=== PATIENT | male | born 1950 | race Caucasian/White ===

== ENCOUNTER 2025-06-09 14:27 | Emergency (ER) | payer OTHER, SELFPAY ==
[2025-06-09] VITALS (7 sets, daily range): BP systolic 139–160; BP diastolic 66–83; BMI 21.5
[2025-06-09 15:03] LABS: Hematocrit 43.6 % (39.0-52.0); Hemoglobin 14.9 g/dL (13.0-18.0); Mean Corp Hgb Conc. 34.2 g/dL (33.0-37.0); Mean Corpuscular Volume 93.8 fL (80.0-94.0); Nucleated Red Blood Cells % 0 % (-); Platelet Count 149 10^3/uL (130-400); Red Cell Dist. Width 12.3 % (11.5-14.5)
[2025-06-09 15:20] LABS: ALT (SGPT) 16 U/L (0-50); AST (SGOT) 21 U/L (17-59); Albumin 4.8 g/dl (3.5-5.0); Alkaline Phosphatase 67 U/L (38-126); Blood Urea Nitrogen 25 mg/dl (9-20); Calcium 9.3 mg/dl (8.4-10.2); Carbon Dioxide 28 mmol/L (22-30); Chloride 111 mmol/L (98-107); Glucose 87 mg/dl (70-99); Potassium 4.5 mmol/L (3.5-5.1); Sodium 143 mmol/L (135-145); Total Protein 7.0 g/dl (6.3-8.2); eGFR > 60.00
--- NOTE | 2025-06-09 19:26 | ED.GENMED ---
History of Present Illness
General
Chief Complaint: Visual Problem
Source: patient and spouse (Patient's at bedside)
Exam Limitations: none
Time Seen by Provider: 06/09/25 18:20
Nursing documentation reviewed up to this point in time: agreed with
History of Present Illness
History of Present Illness:
Patient is a 74-year-old male who presents to the emergency department for evaluation after episode of double vision earlier today. Patient states he was driving his car when he had somewhat acute onset vertical double vision. He states that he
was seeing two complete visual cedeño, 1 on top of the other. Patient states that he was able to snout puller his car and symptoms resolved 2 to 3 minutes following onset. Patient states he did feel some tingling throughout his body immediately
following however now states he is asymptomatic. He then proceeded to come to the emergency department for further evaluation.
Patient states his vision has returned to normal. He denies any headache, numbness/tingling in extremities, or weakness. He denies any ataxia or dysarthria.
On a separate note�patient does state that he has felt increasingly tired with significant exertion recently. He denies any current chest pain, shortness of breath, back pain.
Past History
Past History
ED Past Medical History: COPD
ED Past Surgical History: Tonsilectomy
Social History
Tobacco: Smoker
Review of Systems
Review of Systems
Allergies reviewed?: Yes
All Other Systems: ROS reviewed and negative except as documented in HPI and ROS
Phy Exam
Physical Exam
Physical Exam:
Vitals: Hypertensive, otherwise vital signs stable. Afebrile
General: Patient is well appearing, no acute distress. Nontoxic appearing
Skin: Warm and dry, no rashes or lesions
Head: Normocephalic, atraumatic
Eyes: Sclera nonicteric. EOMs intact. Visual cedeño intact. Pupils equal round and reactive to light bilaterally. No nystagmus.
Throat: Protecting airway
Neck: Normal ROM, no cervical spine tenderness, no meningismus
Cardiac: Regular rate and rhythm, no murmurs.
Pulm: Normal respiratory effort, no wheezes, rales, rhonchi heard on exam
Abdomen: No abdominal tenderness.
Extremities: No evidence of cyanosis or edema. Strength 5/5 in bilateral upper and lower EXTR
Neuro: AAOx3. CN II-XII grossly intact on examination. No facial droop or asymmetry. Steady gait and fluid speech. No focal neurologic deficits.
Psychiatric: Normal affect.
Course
Orders/Labs/Results
Orders:
Orders
06/09/25 14:[address] [CT Head W/o Iv Contrast] Urgent
Comment:
Reason For Exam: double vision
06/09/25 14:51
CMP [Comprehensive Metabolic Panel] Urgent
Complete Blood Count/With Diff Urgent
06/09/25 18:42
Electrocardiogram (*1) Urgent
Reason for Study: Shortness of Breath
EKG- Treatment ONCE
06/09/25 19:20
NT-proBNP Urgent
Troponin I Urgent
06/09/25 19:28
CT Head & Neck Angio W/wo IV Urgent
Comment:
Reason For Exam: diplopia
06/09/25 22:33
Aspirin Chewable [Low Strength Aspirin] 81 mg PO NOW STA
Abnormal Lab Results
06/09/25
14:51
RBC 4.65 L 10^6/uL
(4.70-6.10)
MCH 32.0 H pg
(27.0-31.0)
Chloride 111 H mmol/L
(98-107)
BUN 25 H mg/dl
(9-20)
06/09/25 14:51
06/09/25 14:51
Vital Signs
Initial and Last Documented VS:
Initial Vital Signs
Temp Pulse Resp BP Pulse Ox
98.0 F 68 16 151/83 98
07/15/25 14:35 06/09/25 14:35 06/09/25 14:35 06/09/25 14:35 06/09/25 14:35
Last Documented Vital Signs
Temp Pulse Resp BP Pulse Ox
97.6 F 57 17 139/66 97
06/09/25 19:10 06/09/25 22:40 06/09/25 22:40 06/09/25 22:40 06/09/25 22:40
MDM/Problems Addressed
Differential Diagnosis Includes:
Not limited to: Intracranial mass, intracranial hemorrhage, CVA/TIA, Guillain-Braun�, myasthenia gravis, etc.
MDM/Problems Addressed:
74-year-old male presenting after transient episode of vertical diplopia earlier today while driving, which resolved after 2 to 3 minutes. Patient asymptomatic since without any other associated neurologic symptoms. No history of similar symptoms.
Vitals as above. On exam�patient very well-appearing, in no apparent distress. He has a normal neurologic exam without any focal deficits. He has normal cerebellar exam. Visual cedeño are intact without nystagmus. He is no longer experiencing
phobia. Labs were sent prior to my evaluation without any clinically significant abnormality. Plain head CT showed no acute findings.
Differential broad. Patient does have CVA risk factors, including concern today for possible underlying central process including TIA given symptoms have resolved. Discussed with neurology, Dr. Michele who recommends CTA head/and if negative plan
for outpatient MRI and antiplatelet therapy initiation with baby aspirin.
Update: CTA head/neck without any significant findings. Mild stenosis noted and discussed with patient. Ultimately�patient remains stable with normal workup. Possible TIA would be on differential. However after discussion with neurology will
plan for outpatient follow-up for MRI with primary care and initiation of baby aspirin. Will also advise follow-up with cardiology. Very strict return precautions discussed. Patient and patient's comfortable with plan
Chronic conditions affecting care:
N/A
Acute Exacerbation and/or Progression of Chronic Illness:
N/A
*Radiology
Radiology exam reviewed: radiology read reviewed
*Pulse Oximetry
SaO2: 100
Oxygen Mode of Delivery: Room air
Patient hypoxic: no
*EKG
Interpreted by ED Provider?: Yes
EKG Intrepretation Date: 06/09/25
Interpretation: abnormal
Comparison EKG: changes noted
Heart Rate: 53
Rate: bradycardiac
Rhythm: sinus
[place]: normal axis
Interval: normal QT interval
QRS Pattern: low voltage
Ischemia: non-specific ST changes
*Pit Hand Interpretation
Rate: Pit Hand- N/A
*Critical Care Note
Total Time (30-74mins, 75-104mins- exclusive of procedures): Not Applicable
Patient Management
Discussion with other providers: [employer] (Case discussed with neurology)
ED Attending Note
-
Portions of this chart may have been created with voice recognition software.� Occasional wrong word or��sound alike� substitutions may have occurred due to the inherent limitations of voice recognition software.
Discharge Plan
Departure
Patient Disposition: Home (Routine Discharge)
Date of Disposition: 06/09/25
Time of Disposition: 22:33
Patient with high blood pressure during this ER visit?: Yes
Condition: Good
Covid-19: Not Applicable
Discharge Problem:
Transient diplopia
Instructions: Double Vision (DC), BLOOD PRESSURE
Prescriptions:
No Action
amoxicillin-pot clavulanate 875-125 mg tablet
1 tab PO BID Qty: 20 0RF
albuterol sulfate [ProAir HFA] 90 mcg/actuation HFA aerosol inhaler
1 puff inhalation Q4HPRN PRN (Reason: shortness of breath) Qty: 8.5 0RF
fluticasone propionate [Flovent HFA] 110 mcg/actuation HFA aerosol inhaler
1 inh inhalation BID Qty: 12 0RF
Referrals:
GARY DOSS [Other]
Connor Oswald MD [Active, Cardiology] - Follow up in 1 week
Activity Restrictions/Additional Instructions:
RETURN TO THE EMERGENCY DEPARTMENT WITH ANY SEVERE HEADACHE, NECK PAIN, CHANGES IN MENTAL STATUS, CHANGES IN VISION, NUMBNESS/TINGLING EXTREMITIES, DIFFICULTIES WALKING OR SPEAKING, WEAKNESS, WORSENING IN CURRENT SYMPTOMS, OR ANY OTHER CONCERN
- As discussed�your symptoms had improved by arrival to the emergency department. Your imaging showed some plaque buildup in your arteries of your head/neck.
- We are unsure the exact cause of your symptoms today however it is very important that you follow-up with your primary care provider for an outpatient MRI imaging of your brain for further evaluation.
- You should start taking a baby aspirin, 81 mg daily. Continue to monitor your blood pressure daily.
- Please follow-up with your primary care provider for further evaluation/management as further imaging with an MRI is needed. Please also follow-up with cardiology�information has been provided for you above.
Monitor your symptoms very closely and return to the emergency department with any acute worsening/new symptoms or any signs of stroke.
Interventions
Interventions:
*Risk Screen - Suicide Last Done: 06/09/25 14:35
*General Assessment Last Done: 06/09/25 19:11
*Neglect/Abuse Screening Last Done: 06/09/25 14:35
*ED- Fall Risk Assessment Last Done: 06/09/25 19:11
*ED COVID-19 Vaccine History Last Done: 06/09/25 19:11
*Nursing Disposition Last Done: 06/09/25 22:46
ED- Neurological Assessment Last Done: 06/09/25 19:15
ED-EENT Assessment Last Done: 06/09/25 19:15
ED Swallowing Screen Last Done: 06/09/25 22:40
Discharge Date and Time
Discharge Date/Time: 06/09/25 22:47
Print Language: MALDIVIAN
[2025-06-09 19:52] LABS: Troponin I < 0.012 ng/ml
[2025-06-09] MEDS: LOW STRENGTH ASPIRIN 81 MG PO (22:41)
== END 2025-06-09 22:47 | disposition home or self-care (01) ==
LOC: EMR 14:27
PROVIDERS: Physician Assistant; Student in an Organized Health Care Education/Training Program; EMERGENCY PHYSICIAN Emergency Medicine
DX: H53.2 Diplopia (principal); R20.2 Paresthesia of skin; J44.9 Chronic obstructive pulmonary disease, unspecified; F17.200 Nicotine dependence, unspecified, uncomplicated
CPT/HCPCS: 99284; 70450; 70496; 70498; 80053; 83880; 84484; 85025; 93005; Q9967